=== PATIENT | male | born 1960 | race Caucasian/White ===

== ENCOUNTER 2022-10-27 17:22 | Inpatient (IN) | payer SELFPAY ==
[~2022-10-27] VITALS: Ht 182.9 cm; Wt 52.2 kg
[~2022-10-27 17:22] MED LIST: AUGMENTIN 875 M1 TAB PO; BACTRIM DS 8001 TA1 PO; BACTROBAN OINT22 GM PO; KEFLEX500 MG PO; VICODIN 5/500 505 MG PO; VICODIN 500 MG-1 TAB PO
[2022-10-27 17:34] VITALS: BP 143/76
[2022-10-27 18:46] LABS: BASO % 0.3 % (0.0-1.0); HEMATOCRIT 40.3 % (42.0-52.0); LYMPH # 0.9 10*3/uL (1.3-4.4); LYMPH % 8.7 % (27.0-41.0); MEAN CELL VOLUME 103.9 fl (80.0-94.0); MEAN CORPUSCULAR HGB 35.8 pg (27.0-31.0); MEAN CORPUSCULAR HGB CONC 34.5 g/dl (33.0-37.0); MEAN PLATELET VOLUME 10.2 fl (9.6-12.3); MONO # 1.5 10*3/uL (0.1-1.0); MONO % 14.4 % (3.0-9.0); NEUT # 7.7 10*3/uL (2.3-7.9); NEUT % 76.2 % (47.0-73.0); PLATELET COUNT AUTOMATED 166 10*3/uL (130-400); RED BLOOD COUNT 3.88 10*6/uL (4.50-5.90); RED CELL DISTRI WIDTH 12.1 % (0-14.5)
[2022-10-27 19:02] LABS: ALKALINE PHOSPHATASE 73 U/L (46-116); BUN 10 mg/dl (9-23); CHLORIDE 92 mmol/L (98-107); POTASSIUM 3.4 mmol/L (3.4-5.1); SGPT/ALT 36 U/L (10-49); TOTAL PROTEIN 6.6 gm/dL (6.0-8.0)
[2022-10-27 20:51] VITALS: BP 103/51
[2022-10-27 22:55] VITALS: BP 104/59
[2022-10-28 06:28] LABS: BASO % 0.3 % (0.0-1.0); EOS % 0.3 % (1.0-4.0); HEMATOCRIT 35.4 % (42.0-52.0); LYMPH # 1.1 10*3/uL (1.3-4.4); LYMPH % 15.2 % (27.0-41.0); MEAN CELL VOLUME 106.3 fl (80.0-94.0); MEAN CORPUSCULAR HGB 35.4 pg (27.0-31.0); MEAN CORPUSCULAR HGB CONC 33.3 g/dl (33.0-37.0); MEAN PLATELET VOLUME 10.7 fl (9.6-12.3); MONO # 1.1 10*3/uL (0.1-1.0); MONO % 15.8 % (3.0-9.0); NEUT # 4.7 10*3/uL (2.3-7.9); PLATELET COUNT AUTOMATED 162 10*3/uL (130-400); RED BLOOD COUNT 3.33 10*6/uL (4.50-5.90); RED CELL DISTRI WIDTH 12.4 % (0-14.5); WHITE BLOOD COUNT 6.9 10*3/uL (4.8-10.8)
[2022-10-28 06:33] LABS: ACT PARTIAL THROMBO TIME 32.3 SECONDS (20.0-32.1)
[2022-10-28 06:41] LABS: ALKALINE PHOSPHATASE 63 U/L (46-116); BUN 8 mg/dl (9-23); CHLORIDE 98 mmol/L (98-107); CHOLESTEROL 114 mg/dL (<200); LDL CHOLESTEROL 73 mg/dL (9-159); POTASSIUM 4.1 mmol/L (3.4-5.1); SGPT/ALT 29 U/L (10-49); THYROID STIM HORMONE (HS) 2.058 uIU/ml (0.550-4.780); TRIGLYCERIDES 54 mg/dl (<150)
[2022-10-28 07:26] LABS: VITAMIN D, 25-HYDROXY 9.8 ng/mL (30-100)
[2022-10-28 08:00] VITALS: BP 97/59
[2022-10-28 11:43] LABS: BILIRUBIN 1+ (Negative); BLOOD Negative (Negative); CLARITY Clear (Clear); COLOR Dark Yellow (Yellow); GLUCOSE Negative (Negative); KETONE Trace (Negative); LEUKO ESTERASE Trace (Negative); NITRITE Negative (Negative); SPECIFIC GRAVITY 1.025 (1.001-1.030); UROBILINOGEN >= 8.0 E.U./dl (0.0-1.0)
[2022-10-28 12:00] VITALS: BP 109/66
[2022-10-28 12:01] LABS: BACTERIA 2+; HYALINE CAST 0-2
[2022-10-28 16:00] VITALS: BP 110/56
[2022-10-28 20:00] VITALS: BP 104/57
[2022-10-28 23:05] LABS: BUN 10 mg/dl (9-23); CHLORIDE 96 mmol/L (98-107); POTASSIUM 4.3 mmol/L (3.4-5.1)
[2022-10-29] VITALS: BP 127/74
[2022-10-29 06:47] LABS: BASO % 0.1 % (0.0-1.0); LYMPH # 0.6 10*3/uL (1.3-4.4); LYMPH % 7.9 % (27.0-41.0); MEAN CELL VOLUME 106.4 fl (80.0-94.0); MEAN CORPUSCULAR HGB 35.9 pg (27.0-31.0); MEAN CORPUSCULAR HGB CONC 33.7 g/dl (33.0-37.0); MEAN PLATELET VOLUME 10.4 fl (9.6-12.3); MONO # 0.8 10*3/uL (0.1-1.0); MONO % 10.5 % (3.0-9.0); NEUT # 6.1 10*3/uL (2.3-7.9); NEUT % 80.7 % (47.0-73.0); RED BLOOD COUNT 3.29 10*6/uL (4.50-5.90); RED CELL DISTRI WIDTH 12.2 % (0-14.5); WHITE BLOOD COUNT 7.6 10*3/uL (4.8-10.8)
[2022-10-29 06:55] LABS: PLATELET COUNT AUTOMATED 211 10*3/uL (130-400)
[2022-10-29 06:57] LABS: BUN 8 mg/dl (9-23); CHLORIDE 93 mmol/L (98-107)
[2022-10-29 07:05] LABS: POTASSIUM 3.2 mmol/L (3.4-5.1)
[2022-10-29 08:00] VITALS: BP 122/73
[2022-10-29 12:00] VITALS: BP 100/63
[2022-10-29 16:00] VITALS: BP 110/63
[2022-10-29 20:00] VITALS: BP 122/60
[2022-10-30] VITALS: BP 122/74
[2022-10-30 06:20] LABS: BASO % 0.1 % (0.0-1.0); HEMATOCRIT 37.5 % (42.0-52.0); LYMPH # 0.6 10*3/uL (1.3-4.4); LYMPH % 8.5 % (27.0-41.0); MEAN CELL VOLUME 107.1 fl (80.0-94.0); MEAN CORPUSCULAR HGB 35.7 pg (27.0-31.0); MEAN CORPUSCULAR HGB CONC 33.3 g/dl (33.0-37.0); MEAN PLATELET VOLUME 9.9 fl (9.6-12.3); MONO # 0.5 10*3/uL (0.1-1.0); MONO % 6.4 % (3.0-9.0); NEUT # 6.1 10*3/uL (2.3-7.9); NEUT % 84.4 % (47.0-73.0); PLATELET COUNT AUTOMATED 253 10*3/uL (130-400); RED CELL DISTRI WIDTH 12.3 % (0-14.5); WHITE BLOOD COUNT 7.2 10*3/uL (4.8-10.8)
[2022-10-30 06:33] LABS: BUN 7 mg/dl (9-23); CHLORIDE 98 mmol/L (98-107)
[2022-10-30 06:44] LABS: POTASSIUM 4.5 mmol/L (3.4-5.1)
[2022-10-30 08:00] VITALS: BP 109/64
[2022-10-30 12:00] VITALS: BP 106/62
[2022-10-30 16:00] VITALS: BP 118/76
[2022-10-30 20:00] VITALS: BP 102/60
[2022-10-31] VITALS: BP 129/60
[2022-10-31 02:23] LABS: HEMATOCRIT 37.8 % (42.0-52.0); MEAN CELL VOLUME 108.3 fl (80.0-94.0); MEAN CORPUSCULAR HGB CONC 34.1 g/dl (33.0-37.0); MEAN PLATELET VOLUME 9.5 fl (9.6-12.3); PLATELET COUNT AUTOMATED 267 10*3/uL (130-400); RED BLOOD COUNT 3.49 10*6/uL (4.50-5.90); RED CELL DISTRI WIDTH 12.3 % (0-14.5); WHITE BLOOD COUNT 8.8 10*3/uL (4.8-10.8)
[2022-10-31 02:25] LABS: MANUAL DIFF REFLEX YES
[2022-10-31 02:40] LABS: ALKALINE PHOSPHATASE 62 U/L (46-116); BUN 10 mg/dl (9-23); CHLORIDE 97 mmol/L (98-107); POTASSIUM 4.4 mmol/L (3.4-5.1); SGPT/ALT 48 U/L (10-49); TOTAL PROTEIN 6.5 gm/dL (6.0-8.0)
[2022-10-31 02:45] LABS: TOTAL CELLS COUNTED 100 #CELLS
[2022-10-31 02:46] LABS: PLATELET SUFFICIENCY NORMAL (NORMAL); POLYCHROMASIA SLIGHT; SPHEROCYTES FEW; TOXIC GRANULATION SLIGHT
[2022-10-31 02:47] LABS: OVALOCYTES FEW
[2022-10-31 05:08] LABS: ALKALINE PHOSPHATASE 62 U/L (46-116); BUN 9 mg/dl (9-23); CHLORIDE 97 mmol/L (98-107); POTASSIUM 4.3 mmol/L (3.4-5.1); SGPT/ALT 46 U/L (10-49); TOTAL PROTEIN 6.3 gm/dL (6.0-8.0)
[2022-10-31 05:58] LABS: HEMATOCRIT 37.1 % (42.0-52.0); MEAN CELL VOLUME 109.1 fl (80.0-94.0); MEAN CORPUSCULAR HGB 35.9 pg (27.0-31.0); MEAN CORPUSCULAR HGB CONC 32.9 g/dl (33.0-37.0); MEAN PLATELET VOLUME 10.2 fl (9.6-12.3); PLATELET COUNT AUTOMATED 283 10*3/uL (130-400); RED CELL DISTRI WIDTH 12.4 % (0-14.5); WHITE BLOOD COUNT 8.5 10*3/uL (4.8-10.8)
[2022-10-31 06:06] LABS: MANUAL DIFF REFLEX YES
[2022-10-31 06:35] LABS: PLATELET SUFFICIENCY NORMAL (NORMAL); TOTAL CELLS COUNTED 100 #CELLS
[2022-10-31 08:00] VITALS: BP 123/64
[2022-10-31 12:00] VITALS: BP 118/68
[2022-10-31 16:00] VITALS: BP 125/72
[2022-10-31 20:00] VITALS: BP 119/71
[2022-11-01] VITALS: BP 130/65
[2022-11-01 05:44] LABS: BUN 10 mg/dl (9-23); CHLORIDE 96 mmol/L (98-107); POTASSIUM 5.2 mmol/L (3.4-5.1)
[2022-11-01 06:36] LABS: HEMATOCRIT 38.6 % (42.0-52.0); MEAN CELL VOLUME 108.4 fl (80.0-94.0); MEAN CORPUSCULAR HGB CONC 33.2 g/dl (33.0-37.0); MEAN PLATELET VOLUME 10.3 fl (9.6-12.3); PLATELET COUNT AUTOMATED 298 10*3/uL (130-400); RED BLOOD COUNT 3.56 10*6/uL (4.50-5.90); RED CELL DISTRI WIDTH 12.3 % (0-14.5); WHITE BLOOD COUNT 10.8 10*3/uL (4.8-10.8)
[2022-11-01 06:43] LABS: MANUAL DIFF REFLEX YES
[2022-11-01 07:22] LABS: PLATELET SUFFICIENCY NORMAL (NORMAL); POLYCHROMASIA SLIGHT; TOTAL CELLS COUNTED 100 #CELLS; TOXIC GRANULATION SLIGHT
[2022-11-01 07:23] LABS: OVALOCYTES FEW
[2022-11-01 08:00] VITALS: BP 148/98
[2022-11-01] MEDS ORDERED: NEBULIZER NEB (09:55)
[2022-11-01] MEDS ORDERED: MUCINEX1200 M1 PO (09:55)
[2022-11-01] MEDS ORDERED: VIBRAMYCIN HYC100 MG PO (09:55)
[2022-11-01] MEDS ORDERED: PREDNISONE10 MG PO (09:55)
[2022-11-01] MEDS ORDERED: VENTOLIN 02.5 MG/3 M INH (09:55)
[2022-11-01] MEDS ORDERED: VITAMIN D350 MC2 GT (09:55)
[2022-11-01] MEDS ORDERED: VENT7GM INH (09:55)
[2022-11-01] MEDS ORDERED: SYMB80 INH (09:55)
== END 2022-11-01 10:50 | disposition home or self-care (01) | DRG 871 ==
LOC: ED 17:22 → EDHOLD 20:38 → 4E 23:01
PROVIDERS: Internal Medicine; Physician Assistant; Student in an Organized Health Care Education/Training Program; ADMIT Internal Medicine; ATTEND Internal Medicine
DX: A41.9 Sepsis, unspecified organism (principal); E43 Unspecified severe protein-calorie malnutrition; J18.9 Pneumonia, unspecified organism; Z68.1 Body mass index [BMI] 19.9 or less, adult; E87.1 Hypo-osmolality and hyponatremia; J62.8 Pneumoconiosis due to other dust containing silica; D53.9 Nutritional anemia, unspecified; I10 Essential (primary) hypertension; E83.51 Hypocalcemia; R91.1 Solitary pulmonary nodule; R73.9 Hyperglycemia, unspecified; J43.9 Emphysema, unspecified; F17.219 Nicotine dependence, cigarettes, with unspecified nicotine-induced disorders; Z71.6 Tobacco abuse counseling; Z80.1 Family history of malignant neoplasm of trachea, bronchus and lung

== ENCOUNTER → 2023-05-11 | Outpatient (CLI) | payer MEDICAID ==
[~2023-05-11] MED LIST changes: +MUCINEX1200 M1 PO; +NEBULIZER NEB; +PREDNISONE10 MG PO; +SYMB80 INH; +VENT7GM INH; +VENTOLIN 02.5 MG/3 M INH; +VIBRAMYCIN HYC100 MG PO; +VITAMIN D350 MC2 GT
== END | disposition home or self-care (01) ==
LOC: CT 10:46
PROVIDERS: ATTEND Internal Medicine Critical Care Medicine
DX: J45.40 Moderate persistent asthma, uncomplicated (principal); R91.8 Other nonspecific abnormal finding of lung field; J44.9 Chronic obstructive pulmonary disease, unspecified; J96.11 Chronic respiratory failure with hypoxia; Z68.1 Body mass index [BMI] 19.9 or less, adult; Z99.81 Dependence on supplemental oxygen

== ENCOUNTER → 2023-07-15 | Day surgery (SDC) | payer MEDICAID ==
[~2023-07-15] VITALS: Ht 182.8 cm; Wt 59.0 kg
[~2023-07-15] MED LIST changes: +CYCLOBENZAPRINE5 M3 PO; +DULERA 100 MCG-13 GM INH; +FEROSUL325 M1 PO; +SPIRIVA RESPIMAT4 GM INH
[2023-07-15 06:30] VITALS: BP 161/92
[2023-07-15 07:26] VITALS: BP 103/49
[2023-07-15 07:41] VITALS: BP 106/64
[2023-07-15 07:56] VITALS: BP 117/67
[2023-07-15 08:09] VITALS: BP 135/76
[2023-07-16 12:07] LABS: ACID FAST SPEC PROCESSING Concentration (.)
== END | disposition home or self-care (01) ==
LOC: SDC 07-14 14:00
PROVIDERS: ATTEND Internal Medicine Critical Care Medicine
DX: R05.9 Cough, unspecified (principal); J45.50 Severe persistent asthma, uncomplicated; J44.9 Chronic obstructive pulmonary disease, unspecified; J96.11 Chronic respiratory failure with hypoxia; R91.8 Other nonspecific abnormal finding of lung field; I11.0 Hypertensive heart disease with heart failure; I50.9 Heart failure, unspecified; J18.9 Pneumonia, unspecified organism; K44.9 Diaphragmatic hernia without obstruction or gangrene; G43.909 Migraine, unspecified, not intractable, without status migrainosus; F17.210 Nicotine dependence, cigarettes, uncomplicated; Z99.81 Dependence on supplemental oxygen; Z98.890 Other specified postprocedural states

== ENCOUNTER → 2024-03-26 | Outpatient (CLI) | payer MEDICAID ==
[2024-03-26 08:50] LABS: BASO % 0.3 % (0.0-1.0); EOS # 0.1 10*3/uL (0.0-0.4); EOS % 1.3 % (1.0-4.0); HEMATOCRIT 47.9 % (42.0-52.0); LYMPH # 1.6 10*3/uL (1.3-4.4); LYMPH % 26.5 % (27.0-41.0); MEAN CELL VOLUME 107.2 fl (80.0-94.0); MEAN CORPUSCULAR HGB 36.2 pg (27.0-31.0); MEAN CORPUSCULAR HGB CONC 33.8 g/dl (33.0-37.0); MONO # 0.8 10*3/uL (0.1-1.0); MONO % 13.6 % (3.0-9.0); NEUT # 3.5 10*3/uL (2.3-7.9); NEUT % 58.1 % (47.0-73.0); PLATELET COUNT AUTOMATED 153 10*3/uL (130-400); RED BLOOD COUNT 4.47 10*6/uL (4.50-5.90); RED CELL DISTRI WIDTH 13.1 % (0-14.5)
[2024-03-26 10:14] LABS: VITAMIN D, 25-HYDROXY 18.7 ng/mL (30-100)
[2024-03-26 10:18] LABS: ALKALINE PHOSPHATASE 102 U/L (46-116); BUN 8 mg/dl (9-23); CHLORIDE 99 mmol/L (98-107); CHOLESTEROL 161 mg/dL (<200); LDL CHOLESTEROL 65 mg/dL (9-159); SGPT/ALT 31 U/L (5-49); TOTAL PROTEIN 7.1 gm/dL (6.0-8.0); TRIGLYCERIDES 86 mg/dl (<150)
== END | disposition home or self-care (01) ==
LOC: LAB 08:33
PROVIDERS: ATTEND Internal Medicine
DX: Z12.5 Encounter for screening for malignant neoplasm of prostate (principal); Z00.00 Encounter for general adult medical examination without abnormal findings; E55.9 Vitamin D deficiency, unspecified; D64.9 Anemia, unspecified

== ENCOUNTER → 2024-05-31 | Outpatient (CLI) | payer MEDICAID | END | disposition home or self-care (01) | LOC: CT 09:18 | PROVIDERS: ATTEND Internal Medicine Critical Care Medicine | DX: Z12.2 Encounter for screening for malignant neoplasm of respiratory organs (principal); J45.50 Severe persistent asthma, uncomplicated; J44.9 Chronic obstructive pulmonary disease, unspecified; J96.11 Chronic respiratory failure with hypoxia; Z87.891 Personal history of nicotine dependence ==